=== PATIENT | male | born 1985 | race Caucasian/White ===

== ENCOUNTER 2019-05-05 06:15 | Emergency (ER) | payer OTHER ==
[~2019-05-05] VITALS: Ht 180.3 cm; Wt 111.4 kg
[2019-05-05 06:16] VITALS: BP 141/89
[2019-05-05] MEDS ORDERED: NAPR-837 PO (06:55)
--- NOTE | 2019-05-05 08:27 | REP ---
Clinical: Pain with recent trauma/fall . Technique: AP, lateral, bilateral oblique views right ankle . Findings: No acute fracture or dislocation. Skeletal structures and joint spaces are intact and normal. Ankle mortise appears stable. No subcutaneous emphysema or radiodense foreign body. Impression: Normal right ankle radiograph series. Electronically Signed by Shawn Denise MD 05/05/2019 08:18 A
== END 2019-05-05 07:09 | disposition home or self-care (01) ==
LOC: M ED 06:15
DX: M65.271 Calcific tendinitis, right ankle and foot (principal); Z88.0 Allergy status to penicillin

== ENCOUNTER → 2019-05-27 | Outpatient (CLI) | payer OTHER ==
[~2019-05-27] MED LIST: NAPR-837 PO
--- NOTE | 2019-05-27 11:06 | REP ---
MRI RIGHT ANKLE WITHOUT CONTRAST: HISTORY: Pain in the right ankle and foot. Rule out OCD lesion. Possible peroneus tendonitis. Comparison ankle radiographs are from May 05, 2019. TECHNIQUE: Axial, coronal and sagittal imaging planes utilized. T1- and T2-weighted scans were obtained in the usual fashion with and without fat saturation. MRI FINDINGS: Cortical and medullary bone signal intensity are normal at the ankle and hind foot. There is an area of T2 marrow edema in the medial aspect of the tarsal navicular bone which could be related to contusion. No overt fracture is appreciated. There is a small joint effusion in the talonavicular articulation. No significant ankle joint effusion is seen. There is some subtalar joint fluid however posteriorly. The talar dome and the tibial plafond appear intact. There is no evidence of osteochondral defect lesion. Laterally, the peroneus longus and brevis tendons have an intact appearance. Medially intact tibialis posterior, flexor digitorum, and flexor hallicis longus tendons are seen. No extensor tendinopathy is appreciated. The Achilles tendon is normal in coarse caliber and signal intensity. Plantar fascia shows slight thickening in the proximal 1.5 cm and there is some plantar calcaneal spurring noted. Achilles calcaneal spurring is also noted. No calcaneal erosive changes seen. The pre-Achilles fat does not show significant edema or infiltration. Anterior talofibular and posterior talofibular ligaments have an intact appearance. Anterior posterior inferior tibiofibular ligaments appear intact. The calcaneal fibular ligament is seen on coronal images and appears normal. Deltoid ligamentous complex appears unremarkable. No juxta-articular cyst or mass is seen. IMPRESSION: There is a zone of marrow edema in the medial tarsal navicular bone, which may reflect contusion injury. There is plantar and Achilles calcaneal spurring. Mild thickening of the plantar fascia. Otherwise negative MRI study of the right ankle. Electronically Signed by Aris Davidson MD 05/27/2019 12:54 P
== END ==
LOC: M RAD 06:29
PROVIDERS: ATTEND Orthopaedic Surgery Sports Medicine
DX: M77.31 Calcaneal spur, right foot (principal)

== ENCOUNTER 2023-01-10 04:48 | Emergency (ER) | payer OTHER ==
[~2023-01-10] VITALS: Ht 180.3 cm; Wt 112.6 kg
[~2023-01-10 04:48] MED LIST changes: +KETO10TAB PO
[2023-01-10] MEDS ORDERED: dexAMETHasone 4 MG TAB PO ONE (06:45)
[2023-01-10] MEDS ORDERED: AUGMENTIN 875 MG TAB PO ONE (06:45)
[2023-01-10] MEDS ORDERED: AMOX875T2 PO (06:51)
[2023-01-10 07:00] VITALS: BP 158/90; TEMP 98.2; O2SAT 98
== END 2023-01-10 07:13 | disposition left against medical advice (07) ==
LOC: M ED 04:48
DX: K04.7 Periapical abscess without sinus (principal); L03.211 Cellulitis of face; F17.210 Nicotine dependence, cigarettes, uncomplicated